=== PATIENT | male | born 1935 | race Caucasian/White ===

== ENCOUNTER → 2016-08-29 | Day surgery (SDC) | payer MEDICARE ==
[~2016-08-29] MED LIST: ASPI-110 PO; ASPI81 PO; AUGM500T7 PO; COMMODE 3-IN-11 MIS; DIOV160T60 PO; GABA300C3 PO; HYDR-3580 PO; IOHEXOL 180 MG/ML 20 ML VIAL (for RAD DIAG) ONE; LACTATED RINGER'S 1,000 ML BAG IV ONE; LACTCAP7 PO; LACTCAP8 PO; MISC1TAB9 PO; NEUR300C PO; PRED5TAB PO; PRIL20TA2 PO; PROPOFOL 100 MG/10 ML INJ IV ONE; TRIAMCINOLONE ACETONIDE 40 MG/ML VIAL ONE; VALS1TAB65 PO; WALKER WHEELS/F1 MIS; XARE10TA PO
--- NOTE | 2016-08-29 16:28 | TN ---
cc: [employer] DATE OF OPERATION 08/29/2016 PREOPERATIVE DIAGNOSIS 1. Osteoarthritis, left hip. 2. Arthrofibrosis, left hip. POSTOPERATIVE DIAGNOSIS 1. Osteoarthritis, left hip. 2. Arthrofibrosis, left hip. PROCEDURE 1. Manipulation left hip under anesthesia. 2. Arthrogram left hip. 3. Injection left hip with Kenalog, 40 milligrams. 4. Use of fluoroscopy for percutaneous guidance. 5. Intraoperative x-ray left hip, two views, post arthrogram. SURGEON Dylan Anderson MD ANESTHESIA TIVA. ESTIMATED BLOOD LOSS Minimal. INDICATION This is a 80-year-old male who has a combination of osteoarthritis with loss of motion, left hip and evidence of a lumbar radiculitis. Despite conservative care he is painful and symptomatic. He presents for surgical treatment. PROCEDURE The patient was brought to the operating, given limited sedation. The left hip was evaluated. Under anesthesia range of motion extension 0, flexion 80, internal rotation 20, external rotation 20, adduction 10, abduction 25. The hip was manipulated. Following manipulation extension zero, flexion 110, internal rotation 25, external rotation 30, adduction 25, abduction 35. The left hip was scrubbed with alcohol followed by Hibiclens and draped sterilely. Under fluoroscopy a 22 gauge spinal needle was advanced across the anterior aspect of the hip joint and placed into an intra-articular position. Contrast was instilled. This showed evidence of some leakage of contrast anteriorly. There was minimal pitting and erosive changes. Alignment was satisfactory. We then injected with 40 milligrams of Depo-Medrol and 3 cc of 1% lidocaine plain. The hip was run through a second range of motion. Intraoperative x-rays were obtained. This showed the changes on arthrogram and no evidence of a fracture. The patient was awakened and taken to recovery room in satisfactory condition. MD DONALD Sandra/ISRAEL /3:57 PM /4:05 PM
== END | disposition home or self-care (01) ==
LOC: ESDC 13:40
PROVIDERS: ATTEND Orthopaedic Surgery Orthopaedic Surgery of the Spine
DX: M16.12 Unilateral primary osteoarthritis, left hip (principal); M24.652 Ankylosis, left hip
CPT/HCPCS: 01200; 27095; 27275; 73502; 77002; J3010; J3301; J7120; Q9965; 77003

== ENCOUNTER 2016-10-20 13:21 | Inpatient (IN) | payer MEDICARE ==
[~2016-10-20] VITALS: Ht 177.8 cm; Wt 82.3 kg
[2016-10-24] MEDS ORDERED: PRED5TAB PO (08:36)
[2016-10-24] MEDS ORDERED: ASPI-110 PO (08:36)
[2016-10-24] MEDS ORDERED: PRIL20TA2 PO (08:42)
[2016-10-24] MEDS ORDERED: LACTCAP8 PO (08:42)
[2016-10-24] MEDS ORDERED: NEUR300C PO (14:45)
[2016-10-24] MEDS ORDERED: VALS1TAB65 PO (14:45)
--- NOTE | 2016-11-10 18:56 | MH ---
cc: ALBERT SALDAÑA DATE OF ADMISSION 11/11/2016 ADMISSION DIAGNOSIS Osteoarthritis of the left hip. HISTORY OF THE PRESENT ILLNESS This patient is a 81-year-old white male with significant left hip osteoarthritis. The patient has had extensive conservative care for 3 years with left hip condition. Those treatments include medications, altered activities, physical therapy, injections of cortisone. The patient is having diminishing activities and difficulty with activity of daily living. He has been seen by Dr. Johny Neff and felt to be a candidate for surgical treatment. He now presents for treatment of his left hip. PAST MEDICAL HISTORY, SOCIAL HISTORY, FAMILY HISTORY AND REVIEW OF SYMPTOMS See attached notes. PHYSICAL EXAMINATION GENERAL: Average built white male in moderate distress with his left hip. VITAL SIGNS: 5 feet 10 inches, 182 pounds. BMI of 26. Blood pressure 128/88. HEENT: Normocephalic, atraumatic. Pupils equal, round, reactive to light and accommodation. Extraocular motions intact. NECK: Supple. CHEST: Clear. HEART: Regular rate and rhythm. ABDOMEN: Soft, nontender. Normoactive bowel sounds. MUSCULOSKELETAL: Left hip pain with range of motion especially with internal and external rotation. Neurologic and vascular emanation is within normal limits. IMPRESSION Osteoarthritis left hip. PLAN Left total hip replacement arthroplasty. CONSENT The risks with surgery including infection, bleeding, loss of motion, continued pain, need for further surgery, neurologic and vascular injury. The patient understands these issues and wishes to press on with surgery as outlined above. MD DONALD Sandra/ALEXANDER /6:00 PM /6:48 PM
[2016-11-11] MEDS ORDERED: CHLORHEXIDINE GLUCONATE 2 % 1 PACK (2 CLOTHS) TOPICAL PRN (10:00)
[2016-11-11] MEDS ORDERED: LACTATED RINGER'S 1000 ML IV PRN (10:00)
[2016-11-11] MEDS ORDERED: METOPROLOL TARTRATE 25 MG TAB PO PRN (10:00)
[2016-11-11] MEDS ORDERED: INSULIN HUMAN REGULAR 1,000 UNITS/10 ML VIAL SQ PRN (10:00)
[2016-11-11] MEDS ORDERED: POVIDONE IODINE 5% (ANTISEPSIS KIT) 4 APPLICATIONS EACH NARE PRN (10:00)
[2016-11-11] MEDS ORDERED: SODIUM CHLORID 0.9% 500 ML IV PRN (10:00)
[2016-11-11 10:15] VITALS: BP 116/67; PULSE 78; RESP 18; TEMP 97; O2SAT 99
[2016-11-11] MEDS ORDERED: POVIDONE IODINE 7.5% SCRUB 118 ML BOTTLE TOPICAL SCH (10:15)
[2016-11-11] MEDS ORDERED: ceFAZolin 2 GM PREMIX 50 ML IV SCH (10:15)
[2016-11-11] MEDS ORDERED: AUGM500T7 PO (10:30)
[2016-11-11] MEDS ORDERED: VANCOMYCIN HCL 1000 MG VIAL ONE (10:55)
[2016-11-11] MEDS ORDERED: SODIUM CHLOR 0.9% 250 ML INJ 250 ML ONE (10:55)
[2016-11-11] MEDS ORDERED: TRANEXAMIC ACID INJ 773 MG in SODIUM CHLORIDE 0.9% INJ 100 ML IV SCH (11:00)
[2016-11-11] MEDS ORDERED: EXPAREL PERI-ARTICULAR INJECTION (TOTAL VOL. 60 ML) P-ARTICULR SCH ×2 (11:00)
[2016-11-11] MEDS ORDERED: GENTAMICIN SULFATE 80 MG/2 ML VIAL ONE ×2 (11:16→12:55)
[2016-11-11] MEDS ORDERED: ACETAMINOPHEN 1000 MG/100 ML VIAL IV ONE (11:44)
[2016-11-11] MEDS ORDERED: MIDAZOLAM HCL 2 MG/2 ML VIAL ONE (11:44)
[2016-11-11] MEDS ORDERED: FAMOTIDINE 20 MG/2 ML VIAL ONE ×2 (11:45→11:46)
[2016-11-11] MEDS ORDERED: ONDANSETRON HCL 4 MG/2 ML VIAL IV PUSH ONE (12:00)
[2016-11-11] MEDS ORDERED: NEOSTIGMINE 3 MG/3 ML SYR IV ONE (12:00)
[2016-11-11] MEDS ORDERED: LACTATED RINGER'S 1000 ML INJ 1,000 ML IV ONE (12:00)
[2016-11-11] MEDS ORDERED: ePHEDrine/NS 25 MG/5 ML SYR IV ONE (12:00)
[2016-11-11] MEDS ORDERED: PHENYLEPHRINE HCL 10 MG/ML VIAL IV ONE (12:00)
[2016-11-11] MEDS ORDERED: PROPOFOL 200 MG/20 ML AMP IV ONE (12:00)
[2016-11-11] MEDS ORDERED: PHENYLEPH/NS 1000 MCG/10 ML SYR IV ONE (12:00)
[2016-11-11] MEDS ORDERED: SODIUM CHLOR 0.9% 250 ML INJ 250 ML IV ONE (12:00)
[2016-11-11] MEDS ORDERED: MISCELLANEOUS PHARMACY INFORMATION XX ONE (14:15)
[2016-11-11] MEDS ORDERED: PANTOPRAZOLE SOD 20 MG DELAYED RELEASE TAB PO PRN (14:15)
[2016-11-11] MEDS ORDERED: MISCELLANEOUS NURSING INFORMATION XX PRN (14:15)
[2016-11-11] MEDS ORDERED: NALOXONE HCL 0.4 MG/ML AMP IV PRN (14:15)
[2016-11-11] MEDS ORDERED: MORPHINE SULFATE 8 MG/ML INJ IM PRN (14:15)
[2016-11-11] MEDS ORDERED: MORPHINE SULFATE 30 MG/30 ML PCA IV SCH (14:15)
[2016-11-11] MEDS ORDERED: SODIUM CHLORIDE 0.9% FLUSH 5 ML FLUSH IVF PRN (14:15)
--- NOTE | 2016-11-11 14:19 | PD.OP ---
cc: Dylan Anderson MD Operative Report Date of Surgery: Nov 11, 2016 Preoperative Diagnosis: Osteoarthritis hip, left Postoperative Diagnosis: Same Procedure: Left total hip replacement arthroplasty Anesthesia: Gen. Surgeon: Dylan Anderson [employer] Technician(s): VARUN Quiroz Operation and Findings: EBL: 300 cc INDICATION: This patient presents with significant hip pain related to moderate to severe arthritis of the left hip. The patient has had long-term care with anti-inflammatory medications. He uses an assistive gait aid. He's had an injection of cortisone in the left hip which relieved his symptoms for approximately 3-4 weeks. He continues to be painful and is losing function. Despite extensive conservative care this patient continues to be painful and now presents for surgical treatment. NOTE: Madiha Quiroz PA-C was present for the entire surgical procedure as my fiscal assistant. In my medical opinion her skill and care was necessary for the proper management of this patient. COMPONENTS: COMPANY: [employer] CUP: Elizabeth, 56 mm, 100 series, gription surface LINER: Altrx 36 mm, neutral STEM: Corail, size 14, standard offset, hydroxyapatite-coated HEAD: 36 mm, -2 neck length, /14 taper PROCEDURE: This patient was brought to the operating room and anesthetized in the supine position and positioned on the fracture table with both legs held extended. The left hip and leg was scrubbed with alcohol followed by Hibiclens followed by ChloraPrep and draped sterilely. Antibiotics were given within routine time window and a timeout was done. A 4 inch incision was made starting 2 cm distal and 2 cm lateral to the anterior superior iliac spine. The fascia gerald was opened longitudinally. The interval between the fascia gerald and the rectus was opened down to the capsule of the hip joint. Retractors were positioned allowing good visualization of the capsule. This was opened longitudinally and flaps were created. Stay sutures were utilized. Exposure was excellent. The neck was cut at the proper location using fluoroscopy as a guide. The head was removed. Deep retractors were positioned allowing good visualization of the acetabulum. Acetabulum was deepened down to the floor starting with a proper size reamer and reaming up to 55 mm. A trial was utilized. Fluoroscopy was used to check position and confirmed satisfactory alignment. The rim was reamed with a 56 mm reamer and the final cup was positioned in approximately 20 of anteversion and 40-45 of abduction. Position was satisfactory. A single hole eliminator was positioned followed by the final liner. The lifting hook was utilized. The leg was dropped to the floor, maximally externally rotated and brought across the midline. Retractors were positioned. A box osteotome was utilized followed by progressive broaching to the proper stem size. Trial reduction showed excellent alignment and fit. With 60 of external rotation the leg was dropped to the floor without evidence of anterior subluxation. The wound was irrigated. The final stem was inserted and was found to be very stable. The final reduction using the final head. Stability was as previously noted. Intraoperative x-rays were taken. The wound was irrigated copiously. Hemostasis was controlled. Local anesthesia was utilized. The capsule was repaired with #2 Tycron sutures. The fascia gerald was repaired with running 0 PDS on a loop. Subcutaneous tissue was approximated with 2-0 Vicryl and skin with running intradermal 3-0 Vicryl followed by Steri-Strips. A sterile dressing was applied. The patient was awakened and taken to the recovery room in satisfactory condition. FINDINGS: There was moderate to severe arthritis of the left hip especially posteriorly. There was a large detached porn labrum in addition which was also cephalad and posterior and extensive. There was complete loss of articular cartilage of the posterior one half of the acetabulum posterior femoral head. Dylan Anderson MD Nov 11, 2016 14:19
[2016-11-11] MEDS ORDERED: XARE10TA PO (14:24)
[2016-11-11] MEDS ORDERED: HYDR-3580 PO (14:24)
[2016-11-11] MEDS ORDERED: Post-op Orders (for Pharmacy) MISC XX ONE (14:38)
[2016-11-11] MEDS ORDERED: DO NOT ADM ANY ANTICOAGULANT DRUGS PRN (14:42)
[2016-11-11] MEDS ORDERED: fentaNYL CITRATE 250 MCG/5 ML AMP ONE (14:49)
[2016-11-11] MEDS: LACTATED RINGER'S 1000 ML INJ 1,000 ML IV SCH (15:20)
[2016-11-11] MEDS ORDERED: *HYDROmorphone PF 1 MG VIAL PERIprocedural Use ONLY ONE (15:43)
[2016-11-11 17:35] VITALS: BP 100/49; PULSE 55; RESP 20; TEMP 96.4; O2SAT 100
--- NOTE | 2016-11-11 20:13 | RADRPT ---
EXAM DATE/TIME: 11/11/2016 12:43 [facility] COMPARISON: No previous studies available for comparison. INDICATIONS : Placement of total left hip. MEDICAL HISTORY : None. SURGICAL HISTORY : None. ENCOUNTER: Initial ACUITY: 1 day PAIN SCORE: Non-responsive. LOCATION: Left Hip. FINDINGS: 2 views of the left hip in the operating room show bipolar arthroplasty. Alignment is normal. No evid ence of fracture. CONCLUSION: Left hip arthroplasty appears normally aligned and without evidence of an acute complication. Boom Perez MD on November 11, 2016 at 20:10 Board Certified Radiologist. This report was verified electronically.
[2016-11-11] MEDS: SODIUM CHLORIDE 0.9% FLUSH 5 ML FLUSH IVF SCH (21:00)
[2016-11-11] MEDS: PCA - TOTAL MG MORPHINE DELIVERED PER SHIFT SCH (21:23)
[2016-11-11] MEDS: GABAPENTIN 300 MG CAP PO SCH (23:44)
[2016-11-11] MEDS: MAGNESIUM HYDROXIDE SUSP 30 ML CUP PO SCH (23:44)
[2016-11-11] MEDS: SENNOSIDES 8.6 MG TAB PO SCH (23:44)
[2016-11-12] VITALS (7 sets, daily range): BP systolic 95–145; BP diastolic 46–70; PULSE 62–95; RESP 18–20; TEMP 96.5–98.9; O2SAT 97–100
[2016-11-12] MEDS ORDERED: SODIUM CHLORID 0.9% 500 ML INJ 500 ML IV ONE (00:30)
[2016-11-12] MEDS: LACTATED RINGER'S 1000 ML INJ 1,000 ML IV SCH ×2 (02:41→15:11)
[2016-11-12] MEDS: PCA - TOTAL MG MORPHINE DELIVERED PER SHIFT SCH (05:43)
[2016-11-12 07:20] LABS: HEMATOCRIT 27.7 % (39.0-51.0); REVIEW FLAG FINAL
[2016-11-12] MEDS ORDERED: COMMODE 3-IN-11 MIS (08:21)
[2016-11-12] MEDS ORDERED: WALKER WHEELS/F1 MIS (08:21)
--- NOTE | 2016-11-12 08:24 | HHI.FF ---
Face to Face Verification Diagnosis: (1) Left hip pain (2) Osteoarthritis of left hip Physical Therapy Gait training, Safety evaluation, Transfer training, bed to chair Hip: Total hip, Protocol: Left, Progress to weight bearing Left LE Weight Bearing: WB as tolerated Additional Instructions PT 4 days/wk for 2 weeks. WBAT LLE. L ARAMIS, anterior, protocol. Gait training / transfers. Nursing RN Days per Week: 2 x Week(s): 1 Dressing Changes: Do not change dressing Additional Instructions Hold dressing changes unless saturated or erythema. Vitals assessment. I have seen patient Avelino Morton on 11/12/16. My clinical findings support the need for the requested home health care services because: Limited ability to care for self High risk of falls I certify that my clinical findings support that this patient is homebound because: Post-op weakness Unsteady gait/balance Belgica Medrano Nov 12, 2016 08:24
--- NOTE | 2016-11-12 08:24 | HHI.DCPOC ---
Discharge Care Plan Diagnosis: (1) Left hip pain (2) Osteoarthritis of left hip Your Health Problems Are: Incision/Drains Swelling Additional Problems Mild Hypotension Goals to Promote Your Health * To prevent worsening of your condition and complications * To maintain your health at the optimal level Directions to Meet Your Goals Take your medications as prescribed Follow your dietary instruction Follow activity as directed Keep your appointments as scheduled Take your immunizations and boosters as scheduled If your symptoms worsen call your PCP, if no PCP go to Urgent Care Center or Emergency Room Smoking is Dangerous to Your Health. Avoid second hand smoke Call the 24-hour hour crisis hotline for domestic abuse at [place] Medrano Nov 12, 2016 08:24
--- NOTE | 2016-11-12 08:25 | HHI.DS ---
Discharge Summary Admission Date Nov 11, 2016 at 09:23 Discharge Date: Nov 14, 2016 Admitting Diagnosis see below Diagnosis: (1) Left hip pain Diagnosis: Principal (2) Osteoarthritis of left hip Diagnosis: Principal Procedures Left total hip arthroplasty, direct anterior approach Brief History This is a 81 year old male patient with a 1-2 year history of left hip and groin pain. He had a concomitant back problem and was treated for radicular symptoms for quite some time including use of ESIs. His pain did not improve so further imaging studies were performed of the hip. He was found to have moderate to significant isolated posterior hip arthritis best seen on lateral imaging. Conservative measures were pursued with medications and an intra- articular hip injection. His relief was temporary. Surgical treatment options were discussed and it was recommended he move forward with left total hip arthroplasty, direct anterior approach. He elected to do so and presents for the above. CBC/BMP: 11/12/16 0621 Significant Findings Laboratory Tests Test 11/12/16 06:21 Hemoglobin 9.5 GM/DL (13.0-17.0) Hematocrit 27.7 % (39.0-51.0) Hospital Course Surgical treatment was performed on the day of admission without complication. He recovered well in PACU and was transferred to the orthopaedic floor. Pain was controlled with IV and oral medications. DVT prophylaxis was initiated pod# 1. He did struggle with hypotension pod#1. His BP medication was discontinued , IV morphine was discontinued and he was given a 500cc bolus of LR. His BP improved pod#2. He was compliant with physical therapy and all restrictions. After 3 days he was found to be stable and discharged to a care home facility. He was instructed to continue therapy, pursue a high fiber diet for 3- 5 days and to continue his xarelto for 25 days postop. Pt Condition on Discharge: Stable Discharge Disposition: Disch w/ Home Health Serv Discharge Instructions Diet Instructions: As Tolerated, No Restrictions, High Fiber Diet Activities You Can Perform: Weight Bearing as [place] Activities to Avoid: Strenuous Activity Additional Activity Instruc.: ARAMIS, anterior, protocol New Medications: Commode 3-in-1 (Commode 3-in-1) 1 Mis Mis 1 EA .ROUTE DIRECTED #1 Ref 0 EA Walker with Front Wheels (Walker with Front Wheels) 1 Mis Mis 1 EA .ROUTE DIRECTED #1 Ref 0 EA Hydrocodone-Acetaminophen (Hydrocodone-Acetaminophen) 7.5-325 mg Tab 1 TAB PO Q4H PRN PAIN LESS THAN 5 ON SCALE #50 TAB Rivaroxaban (Xarelto) 10 Mg Tab 10 MG PO Q24H Prevent Blood Clot #25 TAB Continued Medications: Amoxicillin-Clavulanate (Augmentin) 500-125 mg Tab 500 MG PO BID Infection Ref 0 TAB Gabapentin (Neurontin) 300 Mg Cap 300 MG PO HS #30 Ref 0 CAP Lactobacillus Acidophilus (Probiotic) 1 Cap Cap 1 CAP PO DAILY PRN Nutritional Supplement #90 Ref 0 CAP Omeprazole Magnesium (Prilosec) 20 Mg Tab 1 TAB PO DAILY PRN ACID REFLUX Prednisone (Prednisone) 5 Mg Tab 5 MG PO DAILY Ref 0 TAB Valsartan (Valsartan) 160 Mg Tab 160 MG PO DAILY #30 Ref 0 TAB Discontinued Medications: Aspirin DR (Aspirin 81) 81 Mg Tabdr 81 MG PO DAILY Ref 0 TAB Belgica Medrano Nov 12, 2016 08:25
[2016-11-12] MEDS: VALSARTAN 160 MG TAB PO SCH (09:00)
[2016-11-12] MEDS: SODIUM CHLORIDE 0.9% FLUSH 5 ML FLUSH IVF SCH ×2 (09:00→21:00)
[2016-11-12] MEDS: MAGNESIUM HYDROXIDE SUSP 30 ML CUP PO SCH ×2 (09:00→22:38)
[2016-11-12] MEDS: predniSONE 5 MG TAB PO SCH (09:00)
--- NOTE | 2016-11-12 13:30 | PD.ORT.PN ---
Subjective Subjective Remarks Moderate left hip pain, aching and throbbing. Poor appetite but 'did eat some last night'. No new radiating left leg pain. No new CP or SOB. has questions about low blood pressure. Objective Vitals Vital Signs Date Time Temp Pulse Resp B/P Pulse Ox O2 Delivery O2 Flow Rate FiO2 11/12/16 12:00 98.3 71 18 99/46 98 11/12/16 07:42 97.1 67 18 100/50 100 11/12/16 07:10 Nasal Cannula 2.00 11/12/16 05:43 16 11/12/16 04:50 97.0 72 18 96/48 97 11/12/16 00:25 96.5 62 20 95/49 99 11/11/16 21:23 18 11/11/16 20:00 100 Nasal Cannula 3.00 11/11/16 18:25 100 Nasal Cannula 3.00 11/11/16 17:35 96.4 55 20 100/49 100 11/11/16 17:00 63 16 102/52 100 Nasal Cannula 2 11/11/16 16:30 58 16 107/88 100 Nasal Cannula 2 11/11/16 15:49 16 11/11/16 15:30 52 16 110/51 100 Nasal Cannula 2 11/11/16 15:15 56 16 116/57 100 Nasal Cannula 2 11/11/16 15:00 55 16 117/56 100 Nasal Cannula 2 11/11/16 14:40 97.5 65 16 134/60 100 Nasal Cannula 4 I/O 11/11/16 11/11/16 11/11/16 11/12/16 11/12/16 11/12/16 06:59 14:59 22:59 06:59 14:59 22:59 Intake Total 1500 ml 610 ml 1965 ml Output Total 600 ml 600 ml 400 ml Balance 900 ml 10 ml 1565 ml Intake Oral 360 ml 240 ml IV Total 250 ml 1725 ml Other 1500 ml Output Urine Total 300 ml 600 ml 400 ml Estimated Blood Loss 300 ml # Bowel Movements 0 0 Result Diagram: 11/12/16 06 Procedures Left total hip arthroplasty, direct anterior approach Objective Remarks Laying in bed, NAD VS 99/46 o/w wnl LLE Hip dressing c/d/i, no drainage, mild swelling and warmth +motor at, +sens, +nvi neg homans bilat Assessment & Plan Ortho Post Op Day #: 1 Problem List: (1) Left hip pain (2) Osteoarthritis of left hip Assessment and Plan pod#1 s/p L ARAMIS, anterior He has been struggling with low blood pressures since yesterday. Today is was 99/46. BP medications discontinued. D/C [employer] but continue PO pain meds. Currently receiving 500cc LR. We will hold off on PT class this afternoon. Xarelto 10mg qd Hold dressing changes unless saturated. If BP does not improve tomorrow AM then will consult medical. CBC, BMP tomorrow am. D/C planning, tentative [facility] th/fri. DME and F2F written. Belgica Medrano Nov 12, 2016 13:30
[2016-11-12] MEDS: RIVAROXABAN 10 MG TAB PO SCH (14:15)
[2016-11-12] MEDS: GABAPENTIN 300 MG CAP PO SCH (22:38)
[2016-11-12] MEDS: SENNOSIDES 8.6 MG TAB PO SCH (22:39)
[2016-11-12] MEDS: ACETAMINOPHEN/HYDROcodone 325 MG/7.5 MG TAB PO PRN (22:39)
[2016-11-13] VITALS (9 sets, daily range): BP systolic 97–120; BP diastolic 54–68; PULSE 66–100; RESP 17–20; TEMP 96.7–98.8; O2SAT 92–99
[2016-11-13] MEDS: LACTATED RINGER'S 1000 ML INJ 1,000 ML IV SCH ×3 (03:41→20:38)
[2016-11-13 08:03] LABS: HEMATOCRIT 27.5 % (39.0-51.0); MEAN CELL VOLUME 97.7 FL (80.0-100.0); MEAN CORPUSCULAR HGB CONC 32.7 % (32.0-36.0); PLATELET COUNT 137 TH/MM3 (150-450); RED BLOOD COUNT 2.82 MIL/MM3 (4.50-5.90); RED CELL DISTRIBUTION WIDTH 13.5 % (11.6-17.2); REVIEW FLAG FINAL
[2016-11-13 08:46] LABS: BICARBONATE 26.4 MEQ/L (21.0-32.0); POTASSIUM 4.7 MEQ/L (3.5-5.1)
[2016-11-13 09:02] LABS: CALCIUM-PROTEIN CORRECTED 8.2 MG/DL (8.5-10.1)
--- NOTE | 2016-11-13 09:15 | PD.ORT.PN ---
Subjective Subjective Remarks He continues to have moderate left hip pain, aching and throbbing. His appetite is slightly better today. He has less lightheadedness. No new radiating left leg pain. No new CP or SOB. He is unsure about discharge today. Objective Vitals Vital Signs Date Time Temp Pulse Resp B/P Pulse Ox O2 Delivery O2 Flow Rate FiO2 11/13/16 08:00 97.5 73 18 104/57 94 11/13/16 04:00 96.7 71 20 120/68 95 11/13/16 00:00 98.8 79 20 106/59 96 11/12/16 20:30 110/56 11/12/16 20:00 98.9 71 18 96/47 98 11/12/16 16:00 98.4 95 18 145/70 99 11/12/16 12:35 Nasal Cannula 2.00 11/12/16 12:00 98.3 71 18 99/46 98 I/O 11/12/16 11/12/16 11/12/16 11/13/16 11/13/16 11/13/16 07:00 15:00 23:00 07:00 15:00 23:00 Intake Total 1965 ml 600 ml 780 ml 700 ml Output Total 400 ml 500 ml 400 ml 400 ml Balance 1565 ml 100 ml 380 ml 300 ml Intake Oral 240 ml 600 ml 780 ml 700 ml IV Total 1725 ml Output Urine Total 400 ml 500 ml 400 ml 400 ml # Bowel Movements 0 0 0 0 Result Diagram: 11/13/16 0658 11/13/16 0658 Procedures Left total hip arthroplasty, direct anterior approach Objective Remarks Laying in bed, NAD VS 104/57 LLE Hip dressing c/d/i, no new drainage, mild swelling and warmth +motor at, +sens, +nvi neg homans bilat Assessment & Plan Ortho Post Op Day #: 2 Problem List: (1) Left hip pain (2) Osteoarthritis of left hip Assessment and Plan pod#2 s/p L ARAMIS, anterior BP have improved (last 2 were 104/57 and 120/68). Continue to hold hypertensive medications. Continue po percocet but avoid IV or IM pain medications. Xarelto 10mg qd Hold dressing changes unless saturated. PT today - WBAT LLE. Anterior aramis precautions. D/C planning, likely home w [facility] tomorrow. DME and F2F written. Belgica Medrano Nov 13, 2016 09:15
[2016-11-13] MEDS: MAGNESIUM HYDROXIDE SUSP 30 ML CUP PO SCH ×2 (09:53→20:39)
[2016-11-13] MEDS: SODIUM CHLORIDE 0.9% FLUSH 5 ML FLUSH IVF SCH ×2 (09:54→20:39)
[2016-11-13] MEDS: VALSARTAN 160 MG TAB PO SCH (09:54)
[2016-11-13] MEDS: predniSONE 5 MG TAB PO SCH (09:54)
[2016-11-13] MEDS: ACETAMINOPHEN/HYDROcodone 325 MG/7.5 MG TAB PO PRN ×4 (12:52→23:24)
[2016-11-13] MEDS: RIVAROXABAN 10 MG TAB PO SCH (13:45)
[2016-11-13] MEDS: SENNOSIDES 8.6 MG TAB PO SCH (20:39)
[2016-11-13] MEDS: GABAPENTIN 300 MG CAP PO SCH (20:39)
[2016-11-14 00:05] VITALS: BP 110/58; PULSE 82; RESP 17; TEMP 98.9; O2SAT 94
[2016-11-14 04:35] VITALS: BP 103/58; PULSE 72; RESP 18; TEMP 96.4; O2SAT 98
[2016-11-14 07:21] VITALS: PULSE 73
[2016-11-14 08:00] VITALS: BP 126/69; PULSE 71; RESP 18; TEMP 97.8; O2SAT 97
--- NOTE | 2016-11-14 08:05 | PD.ORT.PN ---
Subjective Subjective Remarks He states he is doing a little better today but is concerned about goig home. He still has moderate left hip pain and requires more assistance than he believes his can provide at home. BP have improved. Lightheadedness much improved. No new radiating left leg pain. No new CP or SOB. Likely SNF this afternoon. Objective Vitals Vital Signs Date Time Temp Pulse Resp B/P Pulse Ox O2 Delivery O2 Flow Rate FiO2 11/14/16 07:21 73 11/14/16 04:35 96.4 72 18 103/58 98 11/14/16 00:05 98.9 82 17 110/58 94 11/13/16 22:39 94 11/13/16 20:45 98.8 75 17 105/54 93 11/13/16 17:00 Room Air 11/13/16 16:00 97.7 81 18 97/65 99 11/13/16 12:00 98.1 100 18 118/59 92 11/13/16 09:50 100 117/68 98 11/13/16 08:21 70 11/13/16 08:05 2.00 I/O 11/13/16 11/13/16 11/13/16 11/14/16 11/14/16 11/14/16 07:00 15:00 23:00 07:00 15:00 23:00 Intake Total 700 ml 600 ml 24 ml 240 ml Output Total 400 ml 375 ml 350 ml 300 ml Balance 300 ml 225 ml -326 ml -60 ml Intake Oral 700 ml 600 ml 24 ml 240 ml Output Urine Total 400 ml 375 ml 350 ml 300 ml # Bowel Movements 0 0 0 0 Result Diagram: 11/13/16 0658 11/13/16 0658 Procedures Left total hip arthroplasty, direct anterior approach Objective Remarks Sitting up in bed, NAD VSS LLE Hip dressing c/d/i, no new drainage, mild swelling and warmth +motor at, +sens, +nvi neg homans bilat Assessment & Plan Ortho Post Op Day #: 3 Problem List: (1) Left hip pain (2) Osteoarthritis of left hip Assessment and Plan pod#3 s/p L ARAMIS, anterior Ortho stable today. Likely will need to D/C to SNF today (versus [facility] as previously desired). Will coordinate w CM. PO pain meds as written ([employer] 7.5) Xarelto 10mg qd Hold dressing changes unless saturated. PT today - WBAT LLE. Anterior aramis precautions. F/U in 2 weeks as scheduled. DME and F2F written. Belgica Medrano Nov 14, 2016 08:05
[2016-11-14] MEDS: SODIUM CHLORIDE 0.9% FLUSH 5 ML FLUSH IVF SCH (09:00)
[2016-11-14] MEDS: MAGNESIUM HYDROXIDE SUSP 30 ML CUP PO SCH (09:19)
[2016-11-14] MEDS: VALSARTAN 160 MG TAB PO SCH (09:19)
[2016-11-14] MEDS: ACETAMINOPHEN/HYDROcodone 325 MG/7.5 MG TAB PO PRN (09:19)
[2016-11-14] MEDS: predniSONE 5 MG TAB PO SCH (09:19)
[2016-11-14] MEDS ORDERED: BISACODYL 10 MG SUPP RECTAL PRN (10:30)
[2016-11-14 12:00] VITALS: BP 95/50; PULSE 68; RESP 18; TEMP 96.6; O2SAT 97
[2016-11-14] MEDS: RIVAROXABAN 10 MG TAB PO SCH (13:50)
== END 2016-11-14 14:49 | DRG 470 ==
LOC: HSDI 11-11 09:23 → N06A 11-11 17:14
PROVIDERS: ADMIT Orthopaedic Surgery Orthopaedic Surgery of the Spine; ATTEND Orthopaedic Surgery Orthopaedic Surgery of the Spine
PROC: 0SRB02A Replacement of Left Hip Joint with Metal on Polyethylene Synthetic Substitute, Uncemented, Open Approach (ICD-10-PCS; principal; 2016-11-11 12:00)
DX: M16.12 Unilateral primary osteoarthritis, left hip (principal); I95.9 Hypotension, unspecified; I10 Essential (primary) hypertension; K21.9 Gastro-esophageal reflux disease without esophagitis; M81.0 Age-related osteoporosis without current pathological fracture; I25.2 Old myocardial infarction; Z87.891 Personal history of nicotine dependence
CPT/HCPCS: 73502; 76000; 80048; 84155; 85014; 85018; 85027; 86850; 86900; 86901; 86920; 94150; C1776; C9290; J0131; J0690; J1170; J1580; J2250; J2270; J2370; J2405; J2710; J3010; J3370; J7040; J7050; J7120; J7512

== ENCOUNTER → 2016-10-24 | Outpatient (CLI) | payer MEDICARE ==
[~2016-10-24] MED LIST changes: -IOHEXOL 180 MG/ML 20 ML VIAL (for RAD DIAG) ONE; -LACTATED RINGER'S 1,000 ML BAG IV ONE; -PROPOFOL 100 MG/10 ML INJ IV ONE; -TRIAMCINOLONE ACETONIDE 40 MG/ML VIAL ONE
[2016-10-24 09:03] LABS: BLOOD, URINE NEG (NEG); COMMENT (UR) CULT NOT INDICATED; CULTURE IF INDICATED CULT NOT INDICATED; GLUCOSE,URINE NEG (NEG); HYALINE CAST, URINE 9 /lpf (RARE); KETONE, URINE NEG (NEG); NITRITE,URINE NEG (NEG); PH, URINE 5.5 (5.0-8.5); SQUAMOUS EPITHELIAL CELL URINE <1 /hpf (0-5); URINE COLOR YELLOW (YELLW/STRAW)
[2016-10-24 09:13] LABS: BASOPHIL # 0.1 TH/MM3 (0-0.2); BASOPHIL % 1.1 % (0.0-2.0); EOSINOPHIL # 0.2 TH/MM3 (0-0.4); EOSINOPHIL % 2.1 % (0.0-4.0); HEMATOCRIT 36.1 % (39.0-51.0); HEMO FLAGS DIFF FINAL; LYMPH % 17.3 % (9.0-44.0); LYMPHOCYTE # 1.5 TH/MM3 (1.0-4.8); MEAN CORPUSCULAR HEMOGLOBIN 32.1 PG (27.0-34.0); MEAN CORPUSCULAR HGB CONC 33.1 % (32.0-36.0); MONO % 9.4 % (0.0-8.0); NEUT % 70.1 % (16.0-70.0); PLATELET COUNT 227 TH/MM3 (150-450); RED BLOOD COUNT 3.72 MIL/MM3 (4.50-5.90); RED CELL DISTRIBUTION WIDTH 13.3 % (11.6-17.2); WHITE BLOOD COUNT 8.5 TH/MM3 (4.0-11.0)
[2016-10-24 09:15] LABS: APTT (PATIENT) 24.8 SEC (24.3-30.1); INTERNATIONAL NORMALIZED RATIO 0.9 RATIO; PROTHROMBIN TIME - PATIENT 10.2 SEC (9.8-11.6)
[2016-10-24 09:29] LABS: BICARBONATE 29.4 MEQ/L (21.0-32.0); POTASSIUM 5.5 MEQ/L (3.5-5.1)
--- NOTE | 2016-10-25 16:37 | EKG ---
Date Performed: 10/24/2016 Time Performed: 09:06:24 PTAGE: 80 years EKG: SINUS BRADYCARDIA WITH SINUS ARRHYTHMIA BORDERLINE ECG Since PREVIOUS TRACING 11/16/2007, no significant change. PREVIOUS TRACIN11/16/2007 DOCTOR: Christos Andrews Interpretating Date/Time 10/25/2016 16:37:19
== END ==
LOC: CPRE 08:19
PROVIDERS: ATTEND Orthopaedic Surgery Orthopaedic Surgery of the Spine
DX: Z01.812 Encounter for preprocedural laboratory examination (principal); Z01.810 Encounter for preprocedural cardiovascular examination; Z79.01 Long term (current) use of anticoagulants; M16.12 Unilateral primary osteoarthritis, left hip; R00.1 Bradycardia, unspecified; I49.8 Other specified cardiac arrhythmias
CPT/HCPCS: 36415; 80048; 81001; 85025; 85610; 85730; 93005